=== PATIENT | male | born 1975 | race Caucasian/White ===

== ENCOUNTER 2017-07-01 06:59 | Day surgery (SDC) | payer BC, MEDICAID ==
[~2017-07-01 06:59] MED LIST: Lactated Ringers 1,000 ML IV SCH; Lidocaine 1%/Sod Bicarbonate in NS 8.4% 1 ML Syringe PRN; Sodium Chloride 0.9% 10 ML Syringe FLUSH PRN
--- NOTE | 2017-07-01 07:23 | PCM.PREANE ---
Preanesthetic Assessment - Procedure Proposed Procedure: Diagnostic colonoscopy - Anesthesia/Transfusion/Family Hx Anesthesia History: Prior Anesthesia Without Reaction Family History of Anesthesia Reaction: No Transfusion History: No Prior Transfusion(s) - Review of Systems General: No Symptoms Pulmonary: No Symptoms Cardiovascular: Other Gastrointestinal: Other (GERD) Neurological: Seizure (last seizure was 3 years ago when patient was taken out of his induced coma ) Other: Reports: None, Thyroid Problems - Physical Assessment NPO Status Date: 06/30/17 NPO Status Time: 21:00 Pulse: 59 O2 Sat by Pulse Oximetry: 96 Respiratory Rate: 16 Blood Pressure: 129/74 Temperature: 36.8 C Height: 1.73 m Weight: 74.843 kg ASA Class: 3 Mental Status: Alert & Oriented x3 Dentition: Reports: Normal Dentition Thyro-Mental Finger Breadths: 3 Mouth Opening Finger Breadths: 3 ROM/Head Extension: Full Lungs: Clear to Auscultation, Normal Respiratory Effort Cardiovascular: Regular Rate, Regular Rhythm - Allergies Allergies/Adverse Reactions: Allergies Allergy/AdvReac Type Severity Reaction Status Date / Time No Known Allergies Allergy Verified 06/30/17 15:11 - Blood Blood Available: No Product(s) Available: None - Anesthesia Plan Pre-Op Medication Ordered: None Beta Frederic: Metoprolol Med Last Dose Date: 07/01/17 Med Last Dose Time: 06:00 - Acknowledgements Anesthesia Type Planned: MAC Pt an Appropriate Candidate for the Planned Anesthesia: Yes Alternatives and Risks of Anesthesia Discussed w Pt/Guardian: Yes Pt/Guardian Understands and Agrees with Anesthesia Plan: Yes PreAnesthesia Questionnaire - Past Health History Medical/Surgical History: Denies Medical/Surgical History HEENT History: Reports: Sinusitis, Other (See Below) Other HEENT History: impacted cerumen Cardiovascular History: Reports: High Cholesterol, Hypertension, [place] Other Cardiovascular History: spontaneous arrest arrest 2 years ago and has a pacemaker/def in place Respiratory History: Reports: Other (See Below) Other Respiratory History: latrogenic PE and infarction Gastrointestinal History: Reports: None Genitourinary History: Reports: None [employer]IL[employer] History: Reports: None Musculoskeletal History: Reports: Other (See Below) Other Musculoskeletal History: crushing injury to wrist, disorder of muscle ligament and fasicia, limb pain Neurological History: Reports: Brain Injury, Seizure Psychiatric History: Reports: None Endocrine/Metabolic History: Reports: Hypothyroidism Hematologic History: Reports: None Immunologic History: Reports: None Oncologic (Cancer) History: Reports: None Dermatologic History: Reports: None - Past Surgical History Head Surgeries/Procedures: Reports: None Cardiovascular Surgical History: Reports: AICD, Pacer GI Surgical History: Reports: None Female Surgical History: Reports: None Male Surgical History: Reports: None Neurological Surgical History: Reports: None Musculoskeletal Surgical History: Oncologic Surgical History: Reports: None Dermatological Surgical History: Reports: None - SUBSTANCE USE Smoking Status *Q: Former Smoker Second Hand Smoke Exposure: Yes Days Per Week of Alcohol Use: 2 Number of Drinks Per Day: 15 Total Drinks Per Week: 30 Recreational Drug Use History: No - HOME MEDS Home Medications: Home Meds levETIRAcetam [Keppra] 1,000 mg PO BID 07/04/14 [History] Levothyroxine [Levothyroxine] 25 mcg PO DAILY 06/30/17 [History] Metoprolol Succinate 50 mg PO DAILY 06/30/17 [History] Omeprazole [Omeprazole] 20 mg PO DAILY 06/30/17 [History] - CURRENT (IN HOUSE) MEDS Current Meds: Current Medications Lactated Ringer's (Ringers, Lactated) 1,000 mls @ 125 mls/hr IV ASDIRECTED BENNIE Stop: 07/01/17 23:00 Lidocaine/Sodium Bicarbonate (Buffered Lidocaine 1% In Ns 8.4%) 0.25 ml .XX ONETIME PRN PRN Reason: Prior to IV Start Stop: 07/01/17 18:00 Sodium Chloride (Saline Flush) 10 ml FLUSH ASDIRECTED PRN PRN Reason: Keep Vein Open Stop: 07/01/17 18:00 Discontinued Medications Fentanyl (Sublimaze) Confirm Administered Dose 100 mcg .ROUTE .STK-MED ONE Stop: 07/01/17 07:25 Propofol (Diprivan 20 Ml) Confirm Administered Dose 200 mg .ROUTE .STK-MED ONE Stop: 07/01/17 07:25
[2017-07-01] MEDS ORDERED: fentaNYL 100 MCG/2 ML SDV ONE (07:24)
[2017-07-01] MEDS ORDERED: Propofol 200 MG/20 ML SDV ONE ×2 (07:24→08:50)
--- NOTE | 2017-07-01 08:48 | PCM.OPNOTE ---
- General Post-Op/Procedure Note Date of Surgery/Procedure: 07/01/17 Operative Procedure(s): colonoscopy to cecum with polypectomy Pre Op Diagnosis: rectal bleeding Post-Op Diagnosis: Same Anesthesia Technique: MAC Primary Surgeon: Martir Kyle EBL in mLs: 0 Complications: None Condition: Good
--- NOTE | 2017-07-01 08:51 | PCM48HPAN ---
Post Anesthesia Note - EVALUATION WITHIN 48HRS OF ANESTHETIC Vital Signs in Normal Range: Yes Patient Participated in Evaluation: Yes Respiratory Function Stable: Yes Airway Patent: Yes Cardiovascular Function Stable: Yes Hydration Status Stable: Yes Pain Control Satisfactory: Yes Nausea and Vomiting Control Satisfactory: Yes Mental Status Recovered: Yes
[2017-07-01 08:53] VITALS: BP 102/65
--- NOTE | 2017-07-01 14:14 | OR ---
DATE OF OPERATION: 07/01/2017 SURGEON: Martir Kyle MD PREOPERATIVE DIAGNOSIS: Rectal bleeding. POSTOPERATIVE DIAGNOSIS: Rectal bleeding. FINDINGS: An inflamed polyp in the rectum, which was diminutive and was completely removed and retrieved. There was some prominent rectal veins and internal hemorrhoids as likely source of bleeding. There were no angiodysplasias, large tumor masses, ulcerations, or diverticulum. OPERATION PERFORMED: Colonoscopy to cecum with polypectomy. ANESTHESIA: Done under IV sedation. DESCRIPTION OF PROCEDURE: The patient was taken to the endoscopy room, placed in a supine position, connected to monitoring equipment, and given IV sedation. Was placed in left lateral position. Perianal area was inspected and was normal. Rectal exam showed good sphincter tone. A video Olympus colonoscope was introduced into the rectum and threaded up without problem to the cecum, where the appendicular orifice of ileocecal valve was noted. Prep was excellent. [place] cleansing score grade A. The scope was slowly withdrawn showing the cecum, ascending colon, transverse colon, descending colon, sigmoid colon, and rectum. Retroflexed view was done. A polyp in the rectum was noted that looked inflamed. It was diminutive and it was lassoed with cautery snare, completely removed, and retrieved. Retroflexed view also demonstrated the internal hemorrhoids as likely source of his bleeding. The patient tolerated the procedure, sent to recovery room in a stable condition, and will be followed up in the clinic. ESTIMATED BLOOD LOSS: MMODAL /[id number]
== END 2017-07-01 09:22 | disposition home or self-care (01) ==
LOC: JD.SDS 06:59
PROVIDERS: ATTEND Surgery
DX: K62.1 Rectal polyp (principal); K64.8 Other hemorrhoids; K21.9 Gastro-esophageal reflux disease without esophagitis; I10 Essential (primary) hypertension; E03.9 Hypothyroidism, unspecified; E78.5 Hyperlipidemia, unspecified; Z95.810 Presence of automatic (implantable) cardiac defibrillator; Z87.891 Personal history of nicotine dependence; Z79.01 Long term (current) use of anticoagulants; Z79.899 Other long term (current) drug therapy
CPT/HCPCS: 45385; J3010; J7120; 00810; J2704